=== PATIENT | female | born 1960 | race Caucasian/White ===

== ENCOUNTER 2016-12-04 19:33 | Emergency (ER) | payer OTHER ==
[~2016-12-04] VITALS: Ht 162.6 cm; Wt 76.1 kg
[2016-12-04] MEDS ORDERED: CLONIDINE HCL0.1 MG PO (21:36)
[2016-12-04] MEDS ORDERED: PERCOCET 10/1 TABLET PO (21:36)
[2016-12-04] MEDS ORDERED: ATARAX,VISTARIL50 MG PO (21:36)
[2016-12-04] MEDS ORDERED: LIBRIUM10 MG PO (21:41)
[2016-12-04] MEDS ORDERED: CATAPRES0.1 MG PO (21:43)
[2016-12-04 21:51] VITALS: BP 134/69
== END 2016-12-04 21:55 | disposition home or self-care (01) ==
LOC: EME 19:33
DX: G89.29 Other chronic pain (principal); F11.23 Opioid dependence with withdrawal; E11.9 Type 2 diabetes mellitus without complications; M79.7 Fibromyalgia; E78.5 Hyperlipidemia, unspecified; I10 Essential (primary) hypertension; K21.9 Gastro-esophageal reflux disease without esophagitis; M54.40 Lumbago with sciatica, unspecified side; F17.200 Nicotine dependence, unspecified, uncomplicated
CPT/HCPCS: 99281; 99284; Q0177

== ENCOUNTER 2016-12-11 12:27 | Observation (INO) | payer OTHER ==
[~2016-12-11] VITALS: Ht 165.1 cm; Wt 75.0 kg
[~2016-12-11 12:27] MED LIST: ATARAX,VISTARIL50 MG PO; CATAPRES0.1 MG PO; CLONIDINE HCL0.1 MG PO; LIBRIUM10 MG PO; PERCOCET 10/1 TABLET PO
[2016-12-11 13:56] LABS: CHLORIDE 98 mEq/L (99-109); POTASSIUM 4.6 mEq/L (3.7-5.4); SODIUM 131 mEq/L (136-147)
[2016-12-11 13:57] LABS: MAGNESIUM 1.8 mg/dL (1.3-2.7)
[2016-12-11 13:58] LABS: GLUCOSE 98 mg/dL (70-99)
[2016-12-11 13:59] LABS: ANION GAP 11 MEQ/L (2-14)
[2016-12-11 14:02] LABS: GFR ESTIMATE (CALCULATED) > 59 mL/min/
[2016-12-11 14:03] LABS: UREA NITROGEN (BUN) 8 mg/dL (9-23)
[2016-12-11 14:07] LABS: CREATINE KINASE 112 IU/L (1-294)
[2016-12-11 14:08] LABS: BASOPHIL COUNT 0.1 K/uL (0-0.1); EOSINOPHIL (%) 1.3 % (0-5); EOSINOPHIL COUNT 0.2 K/uL (0-0.3); HEMATOCRIT 40.7 % (36.0-46.0); IMMATURE GRANULOCYTE (%) 0.4 % (0.0-0.7); IMMATURE GRANULOCYTE COUNT 0.1 K/uL; INSTRUMENT ABS NEUTROPHIL CT 10.2 K/uL; LYMPHOCYTE COUNT 4.2 K/uL (1.0-2.8); MCHC 34.4 G/DL (30.0-36.0); MCV 87.3 FL (83-99); MEAN PLAT.VOLUME 8.8 uM^3 (9.5-12.4); MONOCYTE (%) 6.8 % (3-12); MONOCYTE COUNT 1.1 K/uL (0-0.8); NEUTROPHIL (%) 64.4 % (45-76); NEUTROPHIL COUNT 10.2 K/uL (1.8-6.4); PLATELET COUNT 428 K/uL (156-360); RBC DIS.WIDTH-CV 11.8 % (11.8-14.6); RBC DIS.WIDTH-SD 37.7 % (39-53); RED BLOOD COUNT 4.66 M/uL (3.80-5.20); WHITE BLOOD COUNT 15.9 K/uL (4.1-10.2)
[2016-12-11 14:09] LABS: TROP-I INTERPRETATION NEGATIVE; TROPONIN-I < 0.01 ng/mL (0.0-0.30)
[2016-12-11 14:12] LABS: D-DIMER ELISA 0.32 mg/L FEU (< 0.57)
[2016-12-11] MEDS ORDERED: STARLIX60 MG PO (17:42)
[2016-12-11] MEDS ORDERED: JENTADUETO 2.51 EAC2 PO (17:42)
[2016-12-11] MEDS ORDERED: PREVACID30 MG PO (17:42)
[2016-12-11] MEDS ORDERED: ZOFRAN8 MG PO (17:43)
[2016-12-11] MEDS ORDERED: LOPID600 MG PO (17:44)
[2016-12-11] MEDS ORDERED: LINZESS290 MCG PO (17:44)
[2016-12-11 17:45] LABS: POINT-OF-CARE METER ID UU14100415; POINT-OF-CARE USER ID 608261302
[2016-12-11] MEDS ORDERED: LOSARTAN POTAS100 MG PO (17:45)
[2016-12-11] MEDS ORDERED: METOPROLOL SUCC50 MG PO (17:45)
[2016-12-11] MEDS ORDERED: CITALOPRAM HBR40 MG PO (17:46)
[2016-12-11] MEDS ORDERED: DESYREL100 MG PO (17:47)
[2016-12-11] MEDS ORDERED: ATIVAN1 MG PO (17:47)
[2016-12-11] MEDS ORDERED: ROBAXIN750 MG PO (17:48)
[2016-12-11] MEDS ORDERED: HYDROCODON-ACE1 EAC9 PO (17:48)
[2016-12-11] MEDS ORDERED: VENTOLIN HFA18 GM IH (17:49)
[2016-12-11] MEDS ORDERED: FLONASE16 G1 BOTH NARES (17:49)
[2016-12-11] MEDS ORDERED: ZANTAC300 MG PO (17:50)
[2016-12-11] MEDS ORDERED: SINGULAIR10 MG PO (17:50)
[2016-12-11] MEDS ORDERED: AZELASTINE137 MCG/0. BOTH NARES (17:50)
[2016-12-11] MEDS ORDERED: ZETIA10 MG PO (17:51)
[2016-12-11] MEDS ORDERED: ZYRTEC10 M3 PO (17:51)
[2016-12-11] MEDS ORDERED: CORICIDIN HB1 TABLET PO (17:52)
[2016-12-11 21:08] LABS: ADD MIUA? YES; BILIRUBIN NEGATIVE; BLOOD SMALL; COLOR STRAW ((YELLOW)); GLUCOSE (STRIP) 150; KETONES NEGATIVE; LEUKOCYTES NEGATIVE; NITRITE NEGATIVE; PROTEIN (STRIP) NEGATIVE; SPECIFIC GRAVITY 1.023 (1.000-1.030); UROBILINOGEN 0.2 MG/DL (0.2-1.0)
[2016-12-11 21:17] LABS: BACTERIA NONE SEEN /HPF; EPITHELIAL CELLS NONE SEEN /HPF; MUCUS NONE SEEN /LPF; RED BLOOD CELLS 0-5 /HPF (0-5); WHITE BLOOD CELLS 0-5 /HPF (0-5)
[2016-12-11 22:00] VITALS: BP 143/71
[2016-12-11 22:27] LABS: TROP-I INTERPRETATION NEGATIVE; TROPONIN-I < 0.01 ng/mL (0.0-0.30)
[2016-12-11 22:58] LABS: POINT-OF-CARE METER ID UU13113700
[2016-12-12 00:01] VITALS: BP 113/69
[2016-12-12 03:25] LABS: TROP-I INTERPRETATION NEGATIVE; TROPONIN-I < 0.01 ng/mL (0.0-0.30)
[2016-12-12 05:00] VITALS: BP 149/75
[2016-12-12 07:52] LABS: POINT-OF-CARE METER ID UU13113831
[2016-12-12 07:53] LABS: ALKALINE PHOSPHATASE 49 IU/L (3-129); ANION GAP 6 MEQ/L (2-14); CHLORIDE 104 MEQ/L (99-109); GFR ESTIMATE (CALCULATED) > 59 mL/min/; POTASSIUM 4.7 MEQ/L (3.7-5.4); SAMPLE HEMOLYSIS CHECK 0; SAMPLE ICTERIC CHECK 0; SAMPLE LIPEMIA CHECK 0; SODIUM 134 MEQ/L (136-147); TOTAL BILIRUBIN 0.2 MG/DL (0.0-1.0); UREA NITROGEN (BUN) 11 mg/dL (9-23)
[2016-12-12 08:03] LABS: HEMATOCRIT 38.2 % (36.0-46.0); MCHC 33.2 G/DL (30.0-36.0); MCV 90.3 FL (83-99); MEAN PLAT.VOLUME 8.8 uM^3 (9.5-12.4); PLATELET COUNT 338 K/uL (156-360); RBC DIS.WIDTH-SD 39.5 % (39-53); RED BLOOD COUNT 4.23 M/uL (3.80-5.20)
[2016-12-12 08:04] LABS: GLUCOSE 157 mg/dL (70-99)
[2016-12-12 08:40] LABS: WHITE BLOOD COUNT 9.6 K/uL (4.1-10.2)
[2016-12-12 08:45] VITALS: BP 159/77
[2016-12-12 11:59] LABS: POINT-OF-CARE METER ID UU13113831
[2016-12-12] MEDS ORDERED: LOPID600 MG PO (12:08)
[2016-12-12] MEDS ORDERED: XARELTO1 EACH PO (12:08)
[2016-12-12] MEDS ORDERED: HYDROCODON-ACE1 EAC9 PO (12:08)
[2016-12-12] MEDS ORDERED: LORAZEPAM1 MG PO (12:08)
[2016-12-12 12:13] VITALS: BP 138/76
== END 2016-12-12 14:28 | disposition home or self-care (01) ==
LOC: EME 12:27 → RME 12:27 → EDOF 19:37 → 5WEST 21:15
PROVIDERS: Internal Medicine; Physician Assistant
DX: R07.89 Other chest pain (principal); I82.411 Acute embolism and thrombosis of right femoral vein; E87.1 Hypo-osmolality and hyponatremia; F11.23 Opioid dependence with withdrawal; F13.230 Sedative, hypnotic or anxiolytic dependence with withdrawal, uncomplicated; G89.29 Other chronic pain; M79.7 Fibromyalgia; E11.9 Type 2 diabetes mellitus without complications; I10 Essential (primary) hypertension; E78.00 Pure hypercholesterolemia, unspecified; F17.200 Nicotine dependence, unspecified, uncomplicated; F32.9 Major depressive disorder, single episode, unspecified
CPT/HCPCS: 70450; 71020; 71275; 80048; 80053; 81003; 82550; 82948; 83735; 84443; 84484; 85025; 85027; 85379; 93005; 93970; 99202; 99281; 99285; G0378; J1815; J7030

== ENCOUNTER 2016-12-25 21:11 | Observation (INO) | payer OTHER ==
[~2016-12-25] VITALS: Ht 165.1 cm; Wt 77.3 kg
[~2016-12-25 21:11] MED LIST changes: +ATIVAN1 MG PO; +AZELASTINE137 MCG/0. BOTH NARES; +CITALOPRAM HBR40 MG PO; +CORICIDIN HB1 TABLET PO; +DESYREL100 MG PO; +FLONASE16 G1 BOTH NARES; +HYDROCODON-ACE1 EAC9 PO; +JENTADUETO 2.51 EAC2 PO; +LINZESS290 MCG PO; +LOPID600 MG PO; +LORAZEPAM1 MG PO; +LOSARTAN POTAS100 MG PO; +METOPROLOL SUCC50 MG PO; +PREVACID30 MG PO; +ROBAXIN750 MG PO; +SINGULAIR10 MG PO; +STARLIX60 MG PO; +VENTOLIN HFA18 GM IH; +XARELTO1 EACH PO; +ZANTAC300 MG PO; +ZETIA10 MG PO; +ZOFRAN8 MG PO; +ZYRTEC10 M3 PO
[2016-12-25 22:38] LABS: BASOPHIL COUNT 0.1 K/uL (0-0.1); EOSINOPHIL (%) 2.5 % (0-5); EOSINOPHIL COUNT 0.3 K/uL (0-0.3); HEMATOCRIT 36.2 % (36.0-46.0); IMMATURE GRANULOCYTE (%) 0.6 % (0.0-0.7); IMMATURE GRANULOCYTE COUNT 0.1 K/uL; INSTRUMENT ABS NEUTROPHIL CT 5.7 K/uL; LYMPHOCYTE COUNT 5.1 K/uL (1.0-2.8); MCHC 33.7 G/DL (30.0-36.0); MCV 89.2 FL (83-99); MEAN PLAT.VOLUME 8.8 uM^3 (9.5-12.4); MONOCYTE (%) 8.3 % (3-12); NEUTROPHIL (%) 46.1 % (45-76); NEUTROPHIL COUNT 5.7 K/uL (1.8-6.4); PLATELET COUNT 422 K/uL (156-360); RBC DIS.WIDTH-CV 12.1 % (11.8-14.6); RBC DIS.WIDTH-SD 39.1 % (39-53); RED BLOOD COUNT 4.06 M/uL (3.80-5.20); WHITE BLOOD COUNT 12.2 K/uL (4.1-10.2)
[2016-12-25 22:49] LABS: INTER. NORMALIZED RATIO 1.1
[2016-12-25 22:55] LABS: TROP-I INTERPRETATION NEGATIVE; TROPONIN-I < 0.01 ng/mL (0.0-0.30)
[2016-12-25 22:56] LABS: CHLORIDE 94 mEq/L (99-109); POTASSIUM 4.9 mEq/L (3.7-5.4); SODIUM 128 mEq/L (136-147)
[2016-12-25 22:58] LABS: GLUCOSE 204 mg/dL (70-99)
[2016-12-25 22:59] LABS: ANION GAP 14 MEQ/L (2-14)
[2016-12-25 23:02] LABS: GFR ESTIMATE (CALCULATED) 49 mL/min/; UREA NITROGEN (BUN) 8 mg/dL (9-23)
[2016-12-25] MEDS ORDERED: JENTADUETO 2.51 EAC2 PO (23:53)
[2016-12-25] MEDS ORDERED: GEMFIBROZIL600 MG PO (23:54)
[2016-12-25] MEDS ORDERED: XARELTO1 EACH PO (23:55)
[2016-12-25] MEDS ORDERED: XARELTO20 MG PO (23:56)
[2016-12-26 01:55] LABS: POINT-OF-CARE METER ID UU13113702
[2016-12-26 02:37] VITALS: BP 142/66
[2016-12-26 04:00] VITALS: BP 131/63
[2016-12-26 06:20] LABS: TROP-I INTERPRETATION NEGATIVE; TROPONIN-I < 0.01 ng/mL (0.0-0.30)
[2016-12-26 08:35] VITALS: BP 142/65
[2016-12-26 08:55] LABS: POINT-OF-CARE METER ID UU14162513
[2016-12-26 11:43] LABS: POINT-OF-CARE METER ID UU14162513
[2016-12-26 11:58] LABS: TROP-I INTERPRETATION NEGATIVE; TROPONIN-I 0.01 ng/mL (0.0-0.30)
[2016-12-26 12:10] VITALS: BP 134/65
[2016-12-26 14:12] LABS: POINT-OF-CARE METER ID UU14162513
[2016-12-26] MEDS ORDERED: ELIQUIS5 MG PO (15:40)
== END 2016-12-26 17:08 | disposition home or self-care (01) ==
LOC: EME 21:11 → EDOF 12-26 01:14 → 5WEST 12-26 02:18
PROVIDERS: Emergency Medicine; Family Medicine; Internal Medicine
DX: R07.89 Other chest pain (principal); I82.401 Acute embolism and thrombosis of unspecified deep veins of right lower extremity; E87.1 Hypo-osmolality and hyponatremia; L29.9 Pruritus, unspecified; I10 Essential (primary) hypertension; E78.00 Pure hypercholesterolemia, unspecified; E11.9 Type 2 diabetes mellitus without complications; G89.29 Other chronic pain; E78.5 Hyperlipidemia, unspecified; M79.7 Fibromyalgia; F17.200 Nicotine dependence, unspecified, uncomplicated; K21.9 Gastro-esophageal reflux disease without esophagitis
CPT/HCPCS: 71010; 78582; 80048; 82948; 84484; 85025; 85379; 85610; 85730; 93005; 99281; 99285; A9540; A9567; G0378; J1200; J1650; J3010; J7030; S0028

== ENCOUNTER 2017-02-23 12:06 | Emergency (ER) | payer OTHER ==
[~2017-02-23] VITALS: Ht 165.1 cm; Wt 74.8 kg
[~2017-02-23 12:06] MED LIST changes: +ELIQUIS5 MG PO; +GEMFIBROZIL600 MG PO; +XARELTO20 MG PO
[2017-02-23] MEDS ORDERED: ZANAFLEX4 MG PO (14:05)
[2017-02-23] MEDS ORDERED: COZAAR50 MG PO (14:07)
[2017-02-23] MEDS ORDERED: PROTONIX40 MG PO (14:11)
[2017-02-23 15:23] LABS: HEMATOCRIT 40.6 % (36.0-46.0); MCH 29.6 PG (29.0-34.0); MCHC 34.2 G/DL (30.0-36.0); MCV 86.4 FL (83-99); MEAN PLAT.VOLUME 8.5 uM^3 (9.5-12.4); PLATELET COUNT 372 K/uL (156-360); RBC DIS.WIDTH-CV 11.7 % (11.8-14.6); WHITE BLOOD COUNT 12.5 K/uL (4.1-10.2)
[2017-02-23 15:32] LABS: CHLORIDE 94 mEq/L (99-109); POTASSIUM 5.2 mEq/L (3.7-5.4); SODIUM 129 mEq/L (136-147)
[2017-02-23 15:34] LABS: GLUCOSE 112 mg/dL (70-99)
[2017-02-23 15:36] LABS: ANION GAP 12 MEQ/L (2-14); TOTAL BILIRUBIN 0.6 mg/dL (0.0-1.0)
[2017-02-23 15:38] LABS: ALKALINE PHOSPHATASE 63 IU/L (3-129); GFR ESTIMATE (CALCULATED) > 59 mL/min/
[2017-02-23 15:39] LABS: UREA NITROGEN (BUN) 6 mg/dL (9-23)
[2017-02-23 15:41] LABS: LIPASE 21 U/L (1.0-51.0)
[2017-02-23 15:47] LABS: TROP-I INTERPRETATION NEGATIVE; TROPONIN-I < 0.01 ng/mL (0.0-0.30)
[2017-02-23 17:55] LABS: ADD MIUA? NO; BILIRUBIN NEGATIVE; BLOOD NEGATIVE; COLOR STRAW ((YELLOW)); GLUCOSE (STRIP) NEGATIVE; KETONES NEGATIVE; LEUKOCYTES NEGATIVE; NITRITE NEGATIVE; PROTEIN (STRIP) NEGATIVE; SPECIFIC GRAVITY 1.006 (1.000-1.030); UROBILINOGEN 0.2 MG/DL (0.2-1.0)
[2017-02-23] MEDS ORDERED: ELAVIL25 MG PO (18:38)
[2017-02-23 19:18] VITALS: BP 144/86
== END 2017-02-23 19:20 | disposition home or self-care (01) ==
LOC: EME 12:06
PROVIDERS: Nurse Practitioner Family
DX: G62.9 Polyneuropathy, unspecified (principal); E87.1 Hypo-osmolality and hyponatremia; E11.65 Type 2 diabetes mellitus with hyperglycemia; D72.829 Elevated white blood cell count, unspecified; G89.29 Other chronic pain; M54.9 Dorsalgia, unspecified; M79.604 Pain in right leg; Z86.718 Personal history of other venous thrombosis and embolism; Z79.01 Long term (current) use of anticoagulants; R51 Headache; J44.9 Chronic obstructive pulmonary disease, unspecified; I10 Essential (primary) hypertension; Z79.84 Long term (current) use of oral hypoglycemic drugs; F17.200 Nicotine dependence, unspecified, uncomplicated
CPT/HCPCS: 71020; 80053; 81003; 83690; 84484; 85027; 93005; 93971; 99281; 99285; J3010

== ENCOUNTER 2017-04-08 16:24 | Emergency (ER) | payer OTHER ==
[~2017-04-08] VITALS: Ht 165.1 cm; Wt 73.6 kg
[~2017-04-08 16:24] MED LIST changes: +COZAAR50 MG PO; +ELAVIL25 MG PO; +PROTONIX40 MG PO; +ZANAFLEX4 MG PO
[2017-04-08 17:32] LABS: HEMATOCRIT 41.4 % (36.0-46.0); MCH 30.4 PG (29.0-34.0); MCHC 34.5 G/DL (30.0-36.0); MCV 87.9 FL (83-99); MEAN PLAT.VOLUME 8.7 uM^3 (9.5-12.4); PLATELET COUNT 395 K/uL (156-360); RBC DIS.WIDTH-CV 12.1 % (11.8-14.6); RED BLOOD COUNT 4.71 M/uL (3.80-5.20); WHITE BLOOD COUNT 11.9 K/uL (4.1-10.2)
[2017-04-08 17:53] LABS: CHLORIDE 101 mEq/L (99-109); POTASSIUM 4.6 mEq/L (3.7-5.4); SODIUM 135 mEq/L (136-147)
[2017-04-08 17:55] LABS: GLUCOSE 75 mg/dL (70-99)
[2017-04-08 17:56] LABS: ANION GAP 10 MEQ/L (2-14)
[2017-04-08 17:59] LABS: GFR ESTIMATE (CALCULATED) > 59 mL/min/; UREA NITROGEN (BUN) 9 mg/dL (9-23)
[2017-04-08 18:28] LABS: ADD MIUA? NO; BILIRUBIN NEGATIVE; BLOOD NEGATIVE; COLOR STRAW ((YELLOW)); GLUCOSE (STRIP) NEGATIVE; KETONES NEGATIVE; LEUKOCYTES NEGATIVE; NITRITE NEGATIVE; PROTEIN (STRIP) NEGATIVE; SPECIFIC GRAVITY 1.005 (1.000-1.030); UCUL ADDED? NO; UROBILINOGEN 0.2 MG/DL (0.2-1.0)
[2017-04-08 19:09] LABS: TROP-I INTERPRETATION NEGATIVE; TROPONIN-I < 0.01 ng/mL (0.0-0.30)
[2017-04-08 23:31] LABS: MAGNESIUM 1.9 mg/dL (1.3-2.7)
[2017-04-08 23:34] LABS: TOTAL BILIRUBIN 0.3 mg/dL (0.0-1.0)
[2017-04-08 23:35] LABS: ALKALINE PHOSPHATASE 58 IU/L (3-129)
[2017-04-08 23:38] LABS: DIRECT BILIRUBIN 0.1 mg/dL (0.0-0.3)
[2017-04-08 23:39] LABS: LIPASE 25 U/L (1.0-51.0)
[2017-04-09 00:41] VITALS: BP 122/60
== END 2017-04-09 00:50 | disposition home or self-care (01) ==
LOC: EME 16:24
DX: M79.1 Myalgia (principal); R53.1 Weakness; E11.40 Type 2 diabetes mellitus with diabetic neuropathy, unspecified; E78.5 Hyperlipidemia, unspecified; J44.9 Chronic obstructive pulmonary disease, unspecified; K21.9 Gastro-esophageal reflux disease without esophagitis; Z87.11 Personal history of peptic ulcer disease; F17.200 Nicotine dependence, unspecified, uncomplicated; F32.9 Major depressive disorder, single episode, unspecified; I10 Essential (primary) hypertension; Z88.8 Allergy status to other drugs, medicaments and biological substances; Z79.84 Long term (current) use of oral hypoglycemic drugs
CPT/HCPCS: 70450; 80048; 80076; 81003; 83690; 83735; 84100; 84484; 85027; 93005; 99281; 99284; J2270; J2405

== ENCOUNTER 2017-06-23 17:51 | Emergency (ER) | payer OTHER ==
[~2017-06-23] VITALS: Ht 165.1 cm; Wt 76.0 kg
[2017-06-23] MEDS ORDERED: WELLBUTRIN XL300 MG PO (18:51)
[2017-06-23 19:32] LABS: EOSINOPHIL (%) 1.5 % (0-5); EOSINOPHIL COUNT 0.1 K/uL (0-0.3); HEMATOCRIT 35.3 % (36.0-46.0); IMMATURE GRANULOCYTE (%) 0.4 % (0.0-0.7); INSTRUMENT ABS NEUTROPHIL CT 4.5 K/uL; LYMPHOCYTE COUNT 3.9 K/uL (1.0-2.8); MCH 30.3 PG (29.0-34.0); MCHC 34.3 G/DL (30.0-36.0); MCV 88.5 FL (83-99); MONOCYTE (%) 6.4 % (3-12); MONOCYTE COUNT 0.6 K/uL (0-0.8); NEUTROPHIL (%) 48.6 % (45-76); NEUTROPHIL COUNT 4.5 K/uL (1.8-6.4); RBC DIS.WIDTH-CV 12.5 % (11.8-14.6); RBC DIS.WIDTH-SD 39.8 % (39-53); RED BLOOD COUNT 3.99 M/uL (3.80-5.20); WHITE BLOOD COUNT 9.2 K/uL (4.1-10.2)
[2017-06-23 19:55] LABS: TROP-I INTERPRETATION NEGATIVE; TROPONIN-I < 0.01 ng/mL (0.0-0.30)
[2017-06-23 20:23] LABS: CHLORIDE 99 mEq/L (99-109); POTASSIUM 4.3 mEq/L (3.7-5.4); SODIUM 134 mEq/L (136-147)
[2017-06-23 20:25] LABS: GLUCOSE 91 mg/dL (70-99)
[2017-06-23 20:27] LABS: ANION GAP 11 MEQ/L (2-14); TOTAL BILIRUBIN 0.3 mg/dL (0.0-1.0)
[2017-06-23 20:29] LABS: ALKALINE PHOSPHATASE 53 IU/L (3-129); GFR ESTIMATE (CALCULATED) > 59 mL/min/
[2017-06-23 20:30] LABS: UREA NITROGEN (BUN) 12 mg/dL (9-23)
[2017-06-23 20:31] LABS: DIRECT BILIRUBIN 0.1 mg/dL (0.0-0.3)
[2017-06-23 20:32] LABS: LIPASE 21 U/L (1.0-51.0)
[2017-06-23 20:33] LABS: ADD MIUA? NO; BILIRUBIN NEGATIVE; BLOOD NEGATIVE; COLOR YELLOW ((YELLOW)); GLUCOSE (STRIP) NEGATIVE; KETONES NEGATIVE; LEUKOCYTES NEGATIVE; NITRITE NEGATIVE; PROTEIN (STRIP) NEGATIVE; SPECIFIC GRAVITY 1.011 (1.000-1.030); UROBILINOGEN 0.2 MG/DL (0.2-1.0)
[2017-06-23 20:37] LABS: UCUL ADDED? NO
[2017-06-23 20:40] LABS: HEMATOLOGY COMMENT 1 SN; MEAN PLAT.VOLUME 10.7 uM^3 (9.5-12.4); PLAT.SUFFICIENCY ADEQUATE; PLATELET COUNT 134 K/uL (156-360)
[2017-06-23 20:46] LABS: POINT-OF-CARE METER ID UU14100415
[2017-06-23 22:27] VITALS: BP 137/95
== END 2017-06-23 22:28 | disposition home or self-care (01) ==
LOC: EME 17:51
PROVIDERS: Emergency Medicine
DX: J40 Bronchitis, not specified as acute or chronic (principal); F17.200 Nicotine dependence, unspecified, uncomplicated; J44.9 Chronic obstructive pulmonary disease, unspecified; I10 Essential (primary) hypertension; E78.5 Hyperlipidemia, unspecified; E11.9 Type 2 diabetes mellitus without complications; Z79.84 Long term (current) use of oral hypoglycemic drugs; K31.84 Gastroparesis; K21.9 Gastro-esophageal reflux disease without esophagitis; Z87.440 Personal history of urinary (tract) infections; Z88.1 Allergy status to other antibiotic agents
CPT/HCPCS: 71020; 80048; 80053; 80076; 81003; 82948; 83605; 83690; 83880; 84484; 85025; 85610; 85730; 93005; 99281; 99285; J1200; J2765

== ENCOUNTER 2017-09-19 14:31 | Emergency (ER) | payer OTHER ==
[~2017-09-19] VITALS: Ht 165.1 cm; Wt 75.2 kg
[~2017-09-19 14:31] MED LIST changes: +NORCO 5/3251 TABLET PO; +WELLBUTRIN XL300 MG PO
[2017-09-19 15:22] LABS: HEMATOCRIT 41.4 % (36.0-46.0); MCH 30.2 PG (29.0-34.0); MCHC 33.8 G/DL (30.0-36.0); MCV 89.4 FL (83-99); PLATELET COUNT 443 K/uL (156-360); RBC DIS.WIDTH-CV 12.2 % (11.8-14.6); RBC DIS.WIDTH-SD 39.8 % (39-53); RED BLOOD COUNT 4.63 M/uL (3.80-5.20); WHITE BLOOD COUNT 9.4 K/uL (4.1-10.2)
[2017-09-19 15:34] LABS: CHLORIDE 104 mEq/L (99-109); POTASSIUM 3.9 mEq/L (3.7-5.4); SODIUM 138 mEq/L (136-147)
[2017-09-19 15:35] LABS: GLUCOSE 167 mg/dL (70-99)
[2017-09-19 15:37] LABS: ANION GAP 11 MEQ/L (2-14)
[2017-09-19 15:39] LABS: GFR ESTIMATE (CALCULATED) > 59 mL/min/
[2017-09-19 15:40] LABS: UREA NITROGEN (BUN) 16 mg/dL (9-23)
[2017-09-19 15:42] LABS: TROP-I INTERPRETATION NEGATIVE; TROPONIN-I < 0.01 ng/mL (0.0-0.30)
[2017-09-19] MEDS ORDERED: ZOFRAN ODT4 MG PO (17:34)
[2017-09-19 17:49] VITALS: BP 135/77
== END 2017-09-19 17:49 | disposition home or self-care (01) ==
LOC: EME 14:31
DX: R07.89 Other chest pain (principal); R10.10 Upper abdominal pain, unspecified; K21.9 Gastro-esophageal reflux disease without esophagitis; E11.43 Type 2 diabetes mellitus with diabetic autonomic (poly)neuropathy; K31.84 Gastroparesis; J44.9 Chronic obstructive pulmonary disease, unspecified; I10 Essential (primary) hypertension; M79.7 Fibromyalgia; E78.5 Hyperlipidemia, unspecified; F32.9 Major depressive disorder, single episode, unspecified; F17.200 Nicotine dependence, unspecified, uncomplicated; Z86.718 Personal history of other venous thrombosis and embolism; Z88.5 Allergy status to narcotic agent; Z88.8 Allergy status to other drugs, medicaments and biological substances
CPT/HCPCS: 71020; 80048; 84484; 85027; 93005; 99281; 99284; J1630; J1885; J7030

== ENCOUNTER 2017-12-17 17:32 | Emergency (ER) | payer OTHER ==
[~2017-12-17] VITALS: Ht 165.1 cm; Wt 80.4 kg
[~2017-12-17 17:32] MED LIST changes: +ZOFRAN ODT4 MG PO
[2017-12-17 18:30] LABS: HEMATOCRIT 40.3 % (36.0-46.0); HEMOGLOBIN 13.4 G/DL (11.9-15.5); MCH 28.5 PG (29.0-34.0); MCHC 33.3 G/DL (30.0-36.0); MCV 85.6 FL (83-99); PLATELET COUNT 518 K/uL (156-360); RBC DIS.WIDTH-CV 12.8 % (11.8-14.6); RBC DIS.WIDTH-SD 40.4 % (39-53); RED BLOOD COUNT 4.71 M/uL (3.80-5.20); WHITE BLOOD COUNT 11.1 K/uL (4.1-10.2)
[2017-12-17 18:39] LABS: CHLORIDE 100 mEq/L (99-109); POTASSIUM 4.1 mEq/L (3.7-5.4); SODIUM 137 mEq/L (136-147)
[2017-12-17 18:40] LABS: GLUCOSE 86 mg/dL (70-99)
[2017-12-17 18:44] LABS: CREATININE 0.8 mg/dL (0.6-1.3); GFR ESTIMATE (CALCULATED) > 59 mL/min/
[2017-12-17 18:45] LABS: UREA NITROGEN (BUN) 9 mg/dL (9-23)
[2017-12-17 18:50] LABS: TROP-I INTERPRETATION NEGATIVE; TROPONIN-I < 0.01 ng/mL (0.0-0.30)
[2017-12-17 20:07] LABS: D-DIMER ELISA < 150.00 ng/mLDDU (<230)
[2017-12-17 20:50] LABS: TROP-I INTERPRETATION NEGATIVE; TROPONIN-I < 0.01 ng/mL (0.0-0.30)
[2017-12-17 22:51] LABS: APPEARANCE CLEAR ((CLEAR)); BILIRUBIN NEGATIVE; BLOOD NEGATIVE; COLOR STRAW ((YELLOW)); GLUCOSE (STRIP) NEGATIVE; KETONES NEGATIVE; LEUKOCYTES SMALL; NITRITE NEGATIVE; PROTEIN (STRIP) NEGATIVE; SPECIFIC GRAVITY 1.004 (1.000-1.030); UROBILINOGEN 0.2 MG/DL (0.2-1.0)
[2017-12-17 22:53] LABS: BACTERIA RARE /HPF; EPITHELIAL CELLS RARE /HPF; MUCUS TRACE /LPF; RED BLOOD CELLS 0-5 /HPF (0-5); UCUL ADDED? NO; WHITE BLOOD CELLS 0-5 /HPF (0-5)
[2017-12-18] MEDS ORDERED: ZITHROMAX250 MG PO (01:00)
[2017-12-18] MEDS ORDERED: ZOFRAN ODT4 MG PO (01:13)
[2017-12-18 01:19] VITALS: BP 134/88
== END 2017-12-18 01:25 | disposition home or self-care (01) ==
LOC: EME 17:32
PROVIDERS: Emergency Medicine
DX: J18.9 Pneumonia, unspecified organism (principal); J44.0 Chronic obstructive pulmonary disease with (acute) lower respiratory infection; G89.29 Other chronic pain; M79.604 Pain in right leg; M79.605 Pain in left leg; M79.7 Fibromyalgia; K21.9 Gastro-esophageal reflux disease without esophagitis; F32.9 Major depressive disorder, single episode, unspecified; E78.5 Hyperlipidemia, unspecified; E11.9 Type 2 diabetes mellitus without complications; I10 Essential (primary) hypertension; F17.200 Nicotine dependence, unspecified, uncomplicated; Z86.718 Personal history of other venous thrombosis and embolism; Z88.8 Allergy status to other drugs, medicaments and biological substances
CPT/HCPCS: 71046; 71250; 80048; 81003; 82948; 84484; 85027; 85379; 93005; 93970; 94640; 99281; 99285; J0696; J2270; J2405; J7030

== ENCOUNTER 2018-02-15 16:41 | Observation (INO) | payer OTHER ==
[~2018-02-15] VITALS: Ht 165.1 cm; Wt 81.1 kg
[~2018-02-15 16:41] MED LIST changes: +ZITHROMAX250 MG PO
[2018-02-15 18:13] LABS: HEMATOCRIT 39.4 % (36.0-46.0); MCV 84.9 FL (83-99); PLATELET COUNT 408 K/uL (156-360); RBC DIS.WIDTH-CV 14.5 % (11.8-14.6); RED BLOOD COUNT 4.64 M/uL (3.80-5.20); WHITE BLOOD COUNT 17.4 K/uL (4.1-10.2)
[2018-02-15 18:21] LABS: CHLORIDE 101 mEq/L (99-109); POTASSIUM 4.6 mEq/L (3.7-5.4); SODIUM 137 mEq/L (136-147)
[2018-02-15 18:23] LABS: GLUCOSE 140 mg/dL (70-99)
[2018-02-15 18:26] LABS: CREATININE 0.8 mg/dL (0.6-1.3); GFR ESTIMATE (CALCULATED) > 59 mL/min/
[2018-02-15 18:27] LABS: UREA NITROGEN (BUN) 23 mg/dL (9-23)
[2018-02-15] MEDS ORDERED: ZOFRAN4 MG PO (22:50)
[2018-02-15] MEDS ORDERED: ARTIFICIAL TEAR1510 BOTH EYES (22:51)
[2018-02-15] MEDS ORDERED: RESTASIS MULTI5.5 ML BOTH EYES (22:51)
[2018-02-15] MEDS ORDERED: NOVOLOG MI100 UNIT/2 SC (22:52)
[2018-02-15] MEDS ORDERED: PREVACID30 MG PO (22:52)
[2018-02-15] MEDS ORDERED: PROBIOTIC1 EAC1 PO (22:52)
[2018-02-15] MEDS ORDERED: SYMBICORT60 INHALA1 IH (22:53)
[2018-02-15] MEDS ORDERED: MAALOX ADVANCE355 ML PO (22:54)
[2018-02-15] MEDS ORDERED: MAGNESIUM250 MG PO (22:55)
[2018-02-15] MEDS ORDERED: NORCO 10/3251 TABLET PO (22:55)
[2018-02-15] MEDS ORDERED: ONE DAILY1 EAC3 PO (22:55)
[2018-02-15] MEDS ORDERED: XYZAL5 MG PO (22:56)
[2018-02-16 03:35] VITALS: BP 140/67
[2018-02-16 08:05] VITALS: BP 146/80
[2018-02-16 11:20] LABS: MCH 27.1 PG (29.0-34.0); MCHC 31.6 G/DL (30.0-36.0); PLATELET COUNT 437 K/uL (156-360); RBC DIS.WIDTH-CV 14.3 % (11.8-14.6); RBC DIS.WIDTH-SD 44.9 % (39-53); RED BLOOD COUNT 4.42 M/uL (3.80-5.20); WHITE BLOOD COUNT 11.9 K/uL (4.1-10.2)
[2018-02-16 11:26] VITALS: BP 130/68
[2018-02-16] MEDS ORDERED: ZITHROMAX500 MG PO (12:16)
[2018-02-16] MEDS ORDERED: PREDNISONE10 MG PO (12:17)
== END 2018-02-16 13:31 | disposition home or self-care (01) ==
LOC: EME 16:41 → 4SOUTH 02-16 01:43 → EDOF 02-16 01:43 → ENRESERV 02-16 01:45 → 4SOUTH 02-16 03:24
PROVIDERS: Emergency Medicine; Hospitalist; Nurse Practitioner Family
DX: R09.02 Hypoxemia (principal); G89.4 Chronic pain syndrome; R91.8 Other nonspecific abnormal finding of lung field; E11.43 Type 2 diabetes mellitus with diabetic autonomic (poly)neuropathy; K31.84 Gastroparesis; M54.81 Occipital neuralgia; M50.10 Cervical disc disorder with radiculopathy, unspecified cervical region; M32.9 Systemic lupus erythematosus, unspecified; K21.9 Gastro-esophageal reflux disease without esophagitis; M06.9 Rheumatoid arthritis, unspecified; Z86.718 Personal history of other venous thrombosis and embolism; I10 Essential (primary) hypertension; M79.7 Fibromyalgia; F17.200 Nicotine dependence, unspecified, uncomplicated; Z79.4 Long term (current) use of insulin; Z88.8 Allergy status to other drugs, medicaments and biological substances
CPT/HCPCS: 71046; 71275; 80048; 82164 90; 82948; 83605; 85027; 87040; 93005; 94640; 94640 76; 94799; 99202; 99281; 99284; G0378; J0456; J1644; J1815; J2920; J7030